=== PATIENT | female | born 1940 | race African-American/Black ===

== ENCOUNTER 2018-08-04 14:15 | Emergency (ER) | payer SELFPAY ==
[~2018-08-04] VITALS: Ht 167.6 cm; Wt 57.0 kg
[2018-08-04 18:00] VITALS: BP 144/69
== END 2018-08-04 18:46 | disposition home or self-care (01) ==
LOC: ER 14:34
DX: H93.19 Tinnitus, unspecified ear (principal); F17.200 Nicotine dependence, unspecified, uncomplicated
CPT/HCPCS: 70480; 99284